=== PATIENT | male | born 1965 | race Caucasian/White ===

== ENCOUNTER 2016-11-22 12:27 | Observation (INO) | payer OTHER ==
[2016-11-22] MEDS ORDERED: RX INFO: IV CONTRAST WAS GIVEN 1 EACH MISC MISCELLANE PRN (12:53)
[2016-11-22] MEDS ORDERED: SODIUM CHLORIDE 0.9% 1,000 ML IV ONE (12:53)
--- NOTE | 2016-11-22 13:04 | ED ---
Dizziness HPI - General Chief Complaint: Dizziness Stated Complaint: Dizzy, Numbness Time Seen by Provider: 11/22/16 12:45 Source: patient Mode of arrival: ambulatory Limitations: no limitations - History of Present Illness Initial Comments: This is a 51-year-old male presents emergency department for dizziness, numbness , speech difficulty. He states that the dizziness is been going on for the last month. Started after a cold and he's been seen ENT who thinks that he has labyrinthitis however over the last couple of days is been noticing intermittent right-sided numbness and speech problems that are associated with the dizziness. He states that it happens intermittently. It seems to last seconds then resolves. Seems to be made worse with turning his head certain positions. He states during these episodes he is right hand cramps up and he can't use it. He denies any associated headaches or vision changes. No chest pain or shortness of breath. No nausea or vomiting. He does not have any other medical problems and typically works out however is been unable to work out recently because of generalized fatigue. He states he just does not feel right and decided come emergency department for evaluation. - Related Data Home Medications Medication Instructions Recorded Confirmed Omeprazole 20 mg PO DAILY 11/22/16 11/22/16 Allergies Allergy/AdvReac Type Severity Reaction Status Date / Time No Known Allergies Allergy Verified 11/22/16 13:02 Review of Systems ROS Statement: Those systems with pertinent positive or pertinent negative responses have been documented in the HPI. ROS Other: All systems not noted in ROS Statement are negative. Past Medical History Past Medical History: No Reported History History of Any Multi-Drug Resistant Organisms: None Reported Past Surgical History: Orthopedic Surgery Past Psychological History: No Psychological Hx Reported Smoking Status: Never smoker Past Alcohol Use History: Occasional Past Drug Use History: None Reported General Exam - General Exam Comments Initial Comments: Constitutional: Awake alert Appears comfortable Head: Normocephalic atraumatic Eyes: no conjunctival injection No scleral icterus pupils are 5 mm and reactive bilaterally, extraocular muscles are intact without nystagmus Neck: No JVD Supple, no carotid bruits are auscultated Heart: Regular rate rhythm normal S1-S2 no murmurs Lungs: Clear to auscultation bilaterally No wheezing No rales Abdomen: Soft nondistended nontender Extremities: Non edematous DP pulses intact Radial pulses intact Neuro: A&Ox3 nerves II through XII are grossly intact, 5 out of 5 strength in upper and lower extremities bilaterally, no ataxia with finger-nose and heel to garcia testing, sensation is the same on bilateral upper and lower extremities and on his face at this time however the patient has not been having symptoms while in the emergency department. Psych: Appropriate mood and affect Limitations: no limitations Course Vital Signs 11/22/16 11/22/16 12:36 14:16 Temperature 97.9 F Pulse Rate 89 68 Respiratory 18 16 Rate Blood Pressure 139/77 124/66 O2 Sat by Pulse 98 97 Oximetry EKG Findings - EKG Comments: EKG Findings:: EKG showing a sinus rhythm with rate 71. No abnormal ST segment changes or T-wave inversions. QTC is 436. Other intervals are normal. No ectopy. Medical Decision Making - Medical Decision Making This is a 51-year-old male presented for dizziness, numbness, dysarthria. He had a CT and CTA performed which were unremarkable. No symptoms while emergency department however symptoms are concerning for possible TIA versus seizure. I like him to be evaluated by neurology. Dr. Brice accepts the admission. - Lab Data Result diagrams: 11/22/16 13:30 11/22/16 13:30 Lab Results 11/22/16 11/22/16 11/22/16 Range/Units 13:30 13:30 13:30 WBC 5.9 (3.8-10.6) k/uL RBC 5.33 (4.30-5.90) m/uL Hgb 15.7 (13.0-17.5) gm/dL Hct 47.5 (39.0-53.0) % MCV 89.2 (80.0-100.0) fL MCH 29.5 (25.0-35.0) pg MCHC 33.0 (31.0-37.0) g/dL RDW 13.5 (11.5-15.5) % Plt Count 242 (150-450) k/uL Neutrophils % 62 % Lymphocytes % 27 % Monocytes % 7 % Eosinophils % 1 % Basophils % 1 % Neutrophils # 3.6 (1.3-7.7) k/uL Lymphocytes # 1.6 (1.0-4.8) k/uL Monocytes # 0.4 (0-1.0) k/uL Eosinophils # 0.1 (0-0.7) k/uL Basophils # 0.0 (0-0.2) k/uL PT 11.1 (9.0-12.0) sec INR 1.1 (<1.1) APTT 23.5 (22.0-30.0) sec Sodium 143 (137-145) mmol/L Potassium 4.8 (3.5-5.1) mmol/L Chloride 105 (98-107) mmol/L Carbon Dioxide 27 (22-30) mmol/L Anion Gap 11 mmol/L BUN 20 (9-20) mg/dL Creatinine 0.87 (0.66-1.25) mg/dL Est GFR (MDRD) Af Amer >60 (>60 ml/min/1.73 sqM) Est GFR (MDRD) Non-Af >60 (>60 ml/min/1.73 sqM) Glucose 102 H (74-99) mg/dL Calcium 9.9 (8.4-10.2) mg/dL Total Bilirubin 0.8 (0.2-1.3) mg/dL AST 36 (17-59) U/L ALT 61 (21-72) U/L Alkaline Phosphatase 63 (38-126) U/L Total Protein 7.8 (6.3-8.2) g/dL Albumin 4.5 (3.5-5.0) g/dL Disposition Clinical Impression: Vertigo, Dysarthria, Numbness Disposition: ADMITTED IP TO THIS [facility] Condition: Stable
[2016-11-22 13:54] LABS: Basophils % (A) 1 %; CH 30.5; CHCM 34.3; Eosinophils # (A) 0.1 k/uL (0-0.7); Eosinophils % (A) 1 %; HCT 47.5 % (39.0-53.0); HDW 2.69; HGB 15.7 gm/dL (13.0-17.5); Luc # (Auto) 0.15; Luc % (Auto) 3; Lymphocytes # (A) 1.6 k/uL (1.0-4.8); Lymphocytes % (A) 27 %; MCH 29.5 pg (25.0-35.0); MCV 89.2 fL (80.0-100.0); Mean Platelet Volume 6.6; Monocytes # (A) 0.4 k/uL (0-1.0); Monocytes % (A) 7 %; Neutrophils # (A) 3.6 k/uL (1.3-7.7); Neutrophils % (A) 62 %; RBC 5.33 m/uL (4.30-5.90); RDW 13.5 % (11.5-15.5); WBC 5.9 k/uL (3.8-10.6); WBC (Perox) 5.28
[2016-11-22 14:06] LABS: ALT 61 U/L (21-72); AST 36 U/L (17-59); Alkaline Phosphatase 63 U/L (38-126); Anion Gap 11 mmol/L; Blood Urea Nitrogen 20 mg/dL (9-20); Calcium 9.9 mg/dL (8.4-10.2); Carbon Dioxide 27 mmol/L (22-30); Chloride 105 mmol/L (98-107); Glucose 102 mg/dL (74-99); Non-African American GFR(MDRD) >60 (>60 ml/min/1.73 sqM); Potassium 4.8 mmol/L (3.5-5.1); Sodium 143 mmol/L (137-145); Total Bilirubin 0.8 mg/dL (0.2-1.3); Total Protein 7.8 g/dL (6.3-8.2)
[2016-11-22 14:28] LABS: INR 1.1 (<1.1); Partial Thromboplastin Time 23.5 sec (22.0-30.0); Prothrombin Time 11.1 sec (9.0-12.0)
--- NOTE | 2016-11-22 14:31 | CT ---
EXAMINATION TYPE: CT brain wo con DATE OF EXAM: 11/22/2016 2:26 PM COMPARISON: NONE HISTORY: dizziness, Rt sided numbness CT DLP: 1090.[address] of the brain was performed. The ventricles, basal cisterns and sulci overlying the cerebral convexities demonstrate mild enlargem ent. There is no evidence for intracranial hemorrhage or sulcal effacement. There is decreased attenuation about the periventricular white matter and deep white matter of both c erebral hemispheres, compatible with chronic small vessel ischemia. Differential diagnosis does inclu de demyelination. No mass effects are seen.No midline shift. Osseous calvarium is intact. If symptoms persist consider MRI. IMPRESSION: 1. Age related atrophic and chronic small vessel ischemic change without acute intracranial process s een at this time.
--- NOTE | 2016-11-22 14:38 | CT ---
EXAMINATION TYPE: CT angio head neck DATE OF EXAM: 11/22/2016 2:31 PM COMPARISON: NONE HISTORY: Rt sided numbness, dizziness CT DLP: 323.7 mGycm CONTRAST: Performed with IV Contrast, patient injected with 65 mL of Omnipaque 350. Combination Contrast CTA cervical carotids and [place] CTA cervical carotids with 3-D recons truction Contrast CTA of the cervical carotids was performed 3-D reconstruction imaging obtained at a separate workstation. Right carotid system: No significant plaque is seen of the right common carotid artery. There is No significant plaque also noted at the carotid bulb and proximal ICA. No significant diameter reductio n. ECA is patent. Right vertebral artery appears unremarkable. Left carotid system: No significant plaque is seen of the left common carotid artery. There is No si gnificant plaque also noted at the carotid bulb and proximal ICS. No significant diameter reduction. ECA is patent. Left vertebral artery appears unremarkable. IMPRESSION: 1. No significant diameter reduction to account for the patient's symptoms. CTA [place] with 3-D reconstruction Contrast CTA of the [place] was performed 3-D reconstruction imaging obtained at a separate workstation. Vertebrobasilar system as well as intracranial portions of the internal carotid arteries and their ma johanny tributaries are patent. I do not see evidence for sizable aneurysm or vascular malformation. Pl ease note MRI provides greater sensitivity and specificity. Visualized brain appears grossly unremar kable. IMPRESSION: 1. No siginificant abnormality.
[2016-11-22] MEDS ORDERED: NALOXONE 0.4 MG/ML 1 ML VIAL IV PRN (15:20)
[2016-11-22] MEDS: ASPIRIN 81 MG CHEW PO STA ×2 (15:42→15:46)
[2016-11-22] MEDS ORDERED: hydrALAZINE HCL 20 MG/ML 1 ML VIAL IVP PRN (19:01)
[2016-11-22] MEDS ORDERED: ALPRAZolam 0.25 MG TAB PO PRN (19:01)
[2016-11-22] MEDS ORDERED: HYDROcodone/APAP 5-325MG 1 EACH TAB PO PRN (19:01)
[2016-11-22] MEDS ORDERED: TEMAZEPAM 15 MG CAP PO PRN (19:01)
--- NOTE | 2016-11-22 19:20 | XR ---
EXAMINATION TYPE: XR chest 1V portable DATE OF EXAM: 11/22/2016 7:16 PM COMPARISON: NONE HISTORY: Right-sided numbness and dizziness TECHNIQUE: Single frontal view of the chest is obtained. FINDINGS: Heart and mediastinum are normal. Lungs are clear. Diaphragm is normal. There are chest le ads. Bony thorax is intact. IMPRESSION: Normal chest
[2016-11-22] MEDS: HEPARIN SODIUM,PORCINE 5,000 UNIT/ML 1 ML VIAL SQ SCH (20:12)
[2016-11-22 20:30] LABS: Appearance,Urine Clear (Clear); Bilirubin,Urine Negative (Negative); Glucose,Urine (UA) Negative (Negative); Ketones,Urine Negative (Negative); Leukocyte Esterase,Urine Negative (Negative); Nitrite,Urine Negative (Negative); PH, Urine 6.5 (5.0-8.0); Protein,Urine Negative (Negative); Specific Gravity,Urine 1.021 (1.001-1.035); UA Billing (MACRO vs. MICRO) CHEM; Urobilinogen,Urine <2.0 mg/dL (<2.0)
--- NOTE | 2016-11-22 20:38 | US ---
EXAMINATION TYPE: US carotid duplex BILAT DATE OF EXAM: 11/22/2016 8:22 PM COMPARISON: NONE CLINICAL HISTORY: stroke. EXAM MEASUREMENTS: RIGHT: Peak Systolic Velocity (PSV) cm/sec ----- Right CCA: 80.7 ----- Right ICA: 75.5 ----- Right ECA: 69.0 ICA/CCA ratio: 0.9 RIGHT: End Diastole cm/sec ----- Right CCA: 22.0 ----- Right ICA: 26.0 ----- Right ECA: 12.9 LEFT: Peak Systolic Velocity (PSV) cm/sec ----- Left CCA: 73.6 ----- Left ICA: 71.1 ----- Left ECA: 77.5 ICA/CCA ratio: 1.0 LEFT: End Diastole cm/sec ----- Left CCA: 19.3 ----- Left ICA: 27.0 ----- Left ECA: 11.5 VERTEBRALS (direction of flow): Right Vertebral: Antegrade Left Vertebral: Antegrade Minimal plaque visualized bilaterally, no elevated velocities IMPRESSION: There is antegrade flow in the vertebral arteries. The images and measurements suggest l ess than 20% stenosis in both internal carotid arteries. Criteria for Assigning % of Stenosis / Diameter reduction (Estimation based on the indirect measurements of the internal carotid artery velocities (ICA PSV). 1. Normal (no stenosis)=ICA PSV < 125 cm/s: ratio < 2.0: ICA EDV<40 cm/s. 2. Less than 50% stenosis=ICA PSV < 125 cm/s: ratio < 2.0: ICA EDV<40 cm/s. 3. 50 to 69% stenosis=ICA PSV of 125 to 230 cm/s: ration 2.0 ? 4.0: ICA EDV 40-100 cm/s. 4. Greater than 70% stenosis to near occlusion= ICA PSV > 230 cm/s: ratio > 4.0: ICA EDV > 100 cm/s. 5. Near occlusion= ICA PSV velocities may be low or undetectable: variable ratio and ICA EDV. 6. Total occlusion=unable to detect flow.
--- NOTE | 2016-11-23 06:34 | HP ---
DATE OF ADMISSION: The chief complaints are dizziness as well as numbness on the right side of the body. HISTORY OF PRESENT ILLNESS: This 51-year-old gentleman with a past medical history of multiple medical problems including GERD, history of DJD being followed by no primary physician in the outpatient setting was previously working in the [facility]. 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 The patient had a cold about one month ago. Subsequently, the patient had dizziness and the patient is being evaluated by ENT. But today the patient also had some numbness and almost like passing out and a speech difficulty started for a few minutes and the patient came to [facility] and admitted for further evaluation and treatment. The patient was diagnosed with labyrinthitis by ENT, Dr. Mueller in the outpatient setting apparently according to the patient. Otherwise because of right-sided numbness and symptoms, patient was concerned about a TIA or a stroke and the patient came to [facility] and was admitted for further evaluation and treatment. There is no history of any fever, rigors or chills. No history of headache, loss of consciousness or seizures. Currently, the basic labs, CBC and BMP within normal limits and the patient had CT angiography, which showed no significant diameter reduction and the patient admitted for further evaluation and treatment. There is no history of fever, rigors or chills. No history of headache, loss of consciousness or seizures PAST MEDICAL HISTORY: History of DJD, history of GERD. Medications prior to admission include omeprazole. ALLERGIES: None. FAMILY HISTORY: History myocardial infarction, possibly stroke. SOCIAL HISTORY: Patient used to smoke. Occasional alcohol intake. REVIEW OF SYSTEMS: ENT: No diminishing hearing or diminished vision. CARDIOVASCULAR: No angina or palpitations. RESPIRATORY: No cough, no hemoptysis. GI: No nausea. : No dysuria. NERVOUS SYSTEM: As mentioned earlier ALLERGY/IMMUNOLOGY: No asthma. MUSCULOSKELETAL: As mentioned earlier. HEMATOLOGY/ONCOLOGY: No history of anemia. ENDOCRINE: No history of diabetes mellitus or hypothyroidism. CONSTITUTIONAL: As mentioned earlier. DERMATOLOGY: Negative. RHEUMATOLOGY: Negative. PSYCHIATRY: as mentioned earlier. PHYSICAL EXAMINATION: The patient is alert and oriented x3 The pulse is 66, blood pressure 120/57, respirations 16, temps 97.5, pulse ox 98% on room. HEENT: Conjunctivae normal. NECK: No jugular venous distention. CARDIOVASCULAR: S1 and S2, muffled. RESPIRATORY: Breath sounds diminished at the bases. A few scattered rhonchi, no crackles. ABDOMEN: Soft, nontender. No mass palpable. LEGS: No edema, no swelling. NERVOUS SYSTEM: Higher function as mentioned. Moves all 4 limbs. No sensory abnormalities. No weakness appreciated. LYMPHATICS: No lymphadenopathy of neck, axillae or groin. SKIN: No ulcers, rashes or bleeding. LABS: CBC within normal limits. INR is 1.1. Glucose 102. ASSESSMENT: 1. Right-sided numbness and tingling, possible acute transient ischemic attack involving the left hemisphere. 2. Increased random blood sugar. 3. History of recent dizziness and possibly benign vertigo, labyrinthitis. 4. History of gastroesophageal reflux disease. 5. History of degenerative joint disease. 6. History of nicotine dependence. RECOMMENDATIONS AND DISCUSSION: This 51-year-old gentleman presented with multiple complex medical issues, we will monitor the patient closely. Continue the current medications. Continue symptomatic treatment. Otherwise, recommend antiplatelet agents. Neurology consultation ( ) full neurovascular workup. Otherwise, guarded prognosis because of multiple complex medical issues. Further recommendations to follow. See orders for further details. Discussed with the patient, understands and agrees. I also recommend that patient follows up with primary physician closely. The patient understands and agrees. NAVDEEP
[2016-11-23 06:42] LABS: Basophils % (A) 1 %; CH 30.9; CHCM 34.8; Eosinophils # (A) 0.1 k/uL (0-0.7); Eosinophils % (A) 3 %; HCT 43.2 % (39.0-53.0); HDW 2.77; HGB 14.8 gm/dL (13.0-17.5); Luc # (Auto) 0.15; Luc % (Auto) 3; Lymphocytes # (A) 1.7 k/uL (1.0-4.8); Lymphocytes % (A) 35 %; MCH 30.6 pg (25.0-35.0); MCHC 34.2 g/dL (31.0-37.0); MCV 89.3 fL (80.0-100.0); Mean Platelet Volume 6.6; Monocytes # (A) 0.4 k/uL (0-1.0); Monocytes % (A) 8 %; Neutrophils # (A) 2.4 k/uL (1.3-7.7); Neutrophils % (A) 50 %; RBC 4.84 m/uL (4.30-5.90); RDW 13.4 % (11.5-15.5); WBC 4.7 k/uL (3.8-10.6); WBC (Perox) 4.69
[2016-11-23] MEDS: PANTOPRAZOLE 40 MG TABLET PO SCH (06:47)
[2016-11-23 06:48] LABS: Anion Gap 11 mmol/L; Blood Urea Nitrogen 17 mg/dL (9-20); Calcium 9.7 mg/dL (8.4-10.2); Carbon Dioxide 24 mmol/L (22-30); Chloride 107 mmol/L (98-107); Cholesterol 216 mg/dL (<200); Glucose 108 mg/dL (74-99); HDL Cholesterol 41 mg/dL (40-60); Non-African American GFR(MDRD) >60 (>60 ml/min/1.73 sqM); Potassium 4.4 mmol/L (3.5-5.1); Sodium 142 mmol/L (137-145); Triglycerides 198 mg/dL (<150)
[2016-11-23] MEDS: HEPARIN SODIUM,PORCINE 5,000 UNIT/ML 1 ML VIAL SQ SCH ×2 (09:27→22:02)
[2016-11-23] MEDS: ASPIRIN 325 MG TAB PO SCH (09:27)
--- NOTE | 2016-11-23 11:59 | ECHOF ---
Referral Reason:Stroke MEASUREMENTS -------- HEIGHT: 170.2 cm WEIGHT: 88.5 kg BP: 112/69 RVIDd: 3.6 cm (< 3.3) IVSd: 1.1 cm (0.6 - 1.1) LVIDd: 4.4 cm (3.9 - 5.3) LVPWd: 1.1 cm (0.6 - 1.1) IVSs: 2.0 cm LVIDs: 2.8 cm LVPWs: 1.9 cm LA Diam: 2.2 cm (2.7 - 3.8) LAESV Index (A-L): 19.11 ml/m Ao Diam: 3.5 cm (2.0 - 3.7) AV Cusp: 2.1 cm (1.5 - 2.6) LA Diam: 2.9 cm (2.7 - 3.8) MV EXCURSION: 22.560 mm (> 18.000) MV EF SLOPE: 78 mm/s (70 - 150) EPSS: 0.4 cm MV E Miguel Angel: 0.86 m/s MV DecT: 272 ms MV A Miguel Angel: 0.69 m/s MV E/A Ratio: 1.25 RAP: 5.00 mmHg RVSP: 18.11 mmHg FINDINGS -------- Sinus rhythm. This was a technically adequate study. There is borderline concentric left ventricular hypertrophy. Overall left ventricular systolic function is normal with, an EF between 60 - 65 %. The right ventricle is normal in size and function. Normal LA size by volume 22+/-6 ml/m2. The right atrium is normal in size. The aortic valve is trileaflet, and appears structurally normal. No aortic stenosis or regurgitation. The mitral valve leaflets are mildly thickened. There is trace mitral regurgitation. Trace tricuspid regurgitation present. There is no evidence of pulmonary hypertension. The right ventricular systolic pressure, as measured by Doppler, is 18.11mmHg. The pulmonic valve was not well visualized. The aortic root size is normal. IVC Not well visulized. There is no pericardial effusion. CONCLUSIONS -------- 1. Sinus rhythm. 2. The pulmonic valve was not well visualized. 3. The aortic root size is normal. 4. IVC Not well visulized. 5. There is no pericardial effusion. 6. There is borderline concentric left ventricular hypertrophy. 7. Overall left ventricular systolic function is normal with, an EF between 60 - 65 %. 8. Normal LA size by volume 22+/-6 ml/m2. 9. The mitral valve leaflets are mildly thickened. 10. There is trace mitral regurgitation. 11. Trace tricuspid regurgitation present. 12. There is no evidence of pulmonary hypertension. 13. The right ventricular systolic pressure, as measured by Doppler, is 18.11mmHg. [employer]CRAFT [employer]ORER: Rene Jacques RDCS
[2016-11-23] MEDS: ATORVASTATIN 20 MG TAB PO SCH (12:07)
--- NOTE | 2016-11-23 17:58 | PN ---
DATE OF SERVICE: 11/23/2016 This 51-year-old gentleman admitted with dizziness and numbness of the right side is being closely monitored. The CT scan has been negative. No chest pain. No palpitations. No fever. Patient has some mild hyperlipidemia. Neurology evaluation in progress. MRI has been ordered. On exam, alert and oriented x3. Pulse is 72, blood pressure 106/56, respirations 18, temperature 97.8, pulse ox 95% on room air. HEENT: Conjunctivae normal. NECK: No jugular venous distention. CARDIOVASCULAR: S1 and S2. RESPIRATORY: Breath sounds diminished at the bases. No rhonchi, no crackles. ABDOMEN: Soft, nontender. LEGS: No edema, no swelling. NERVOUS SYSTEM: No focal deficits. LABS: CBC within normal limits. Otherwise triglycerides is 198, cholesterol is 169, LDL is 135. ASSESSMENT: 1. Right-sided numbness and tingling with possible acute transient ischemic attack involving the left hemisphere. 2. Increased random blood sugar. 3. Hyperlipidemia. 4. Hypertriglyceridemia. 5. History of recent dizziness and possible benign positional vertigo and labyrinthitis. 6. History of gastroesophageal reflux disease. 7. History of degenerative joint disease. 8. History of nicotine dependence. RECOMMENDATIONS AND DISCUSSION: I recommend to continue the current medications, continue monitoring and symptomatic treatment. Otherwise add Lipitor. Continue with antiplatelet agents. Continue the rest of medications, DVT prophylaxis. Neurology evaluation. Neurovascular work-up and a 2-D echo was done today, which showed ejection fraction of 60 to 65%. Prognosis guarded. Further recommendations to follow.
--- NOTE | 2016-11-24 04:42 | CONS ---
DATE OF CONSULTATION: 11/23/2016 CHIEF COMPLAINT: Dizziness and numbness. HISTORY OF PRESENT ILLNESS: Mr. Rothman is a pleasant 51-year-old male who is being evaluated by the neurology service per the request of Dr. Brice for the above-mentioned complaints. The patient states that he has been having sinus issues for a few weeks. He was seen by a local physician and was given some antibiotics. His symptoms did not improve and he started having some dizziness which he described as an off-balance sensation with occasional vertigo. He did see an ear, nose, and throat specialist, who gave him some nasal sprays and steroids. A couple of days ago, he started having more dizziness with some numbness and tingling involving the right side of his body. He noticed that this is positional and with certain head movements he was having numbness involving his right face, right arm, and even the right leg. He denies any neck pain and denies any recent injuries. He was brought into [facility] Emergency Room for further workup and management. In the emergency room, a CT scan of the brain was done, which showed small vessel ischemic changes and generalized atrophy. A carotid Doppler was done, which showed no hemodynamically significant stenosis. His fasting lipid panel showed mild dyslipidemia. The patient was started on Lipitor and aspirin and admitted for further workup and management. He did have a CT angiogram of the neck, which showed no abnormalities. His CT angiogram of the brain was also normal. I did review his chest x-ray, CBC, comprehensive metabolic profile, and INR, all of which were normal. At the time of my evaluation, the patient is lying in his bed and appears to be in no acute distress. He continues to have the above-mentioned symptoms whenever he gets out of bed. He is asymptomatic when he is lying in bed. He denies any previous symptoms similar to this. PAST MEDICAL HISTORY: Gastroesophageal reflux disease. PAST SURGICAL HISTORY: Orthopedic surgeries. SOCIAL HISTORY: He denies any tobacco or drug use. He occasionally drinks alcohol. FAMILY HISTORY: Noncontributory. HOME MEDICATIONS: Omeprazole. ALLERGIES: No known drug allergies. REVIEW OF SYSTEMS: CONSTITUTIONAL: Negative. EYES: Negative. ENT: As mentioned above. CARDIOVASCULAR: Negative. RESPIRATORY: Negative. NEUROLOGICAL: As mentioned above. GASTROINTESTINAL: Positive for occasional heartburn. GENITOURINARY: Negative. PSYCHIATRIC: Negative. ENDOCRINE: Negative. DERMATOLOGICAL: Negative. MUSCULOSKELETAL: As mentioned above. PHYSICAL EXAM: Vital signs show a temperature of 97.6, pulse 72, respirations 16, blood pressure 122/73. GENERAL APPEARANCE: The patient is a well-developed male who appears to be in no acute distress. HEENT: Normocephalic, atraumatic, no facial asymmetry is seen. Extraocular muscles are intact with no nystagmus seen. Neck is supple with no masses felt. CARDIOVASCULAR: Regular rate and rhythm. ABDOMEN: Nontender, nondistended. Extremities showed no edema or clubbing. NEUROLOGICAL EXAM: The patient is awake, alert, and oriented x3. Speech and language are normal. Strength is full in all 4 extremities. Sensory exam was normal to light touch in all 4 extremities. No tremors or seizure-like activity is seen. No facial asymmetry is noticed on cranial nerve testing. IMPRESSION: 1. Vertigo. 2. Right-sided numbness. 3. Small vessel ischemic disease. 4. Dyslipidemia. RECOMMENDATIONS: The patient continues to have recurrent dizziness and right-sided numbness which is positional. I did review his CT angiogram of the neck, which showed no evidence of any arterial dissection. Due to his continued symptoms, I will order an MRI of the brain and cervical spine without contrast. An EEG will be ordered. Depending on the results, I will consider trying him on meclizine. Continue Lipitor for the dyslipidemia. Continue aspirin for the small vessel ischemic changes seen on his CT scan of the brain. I will continue to follow with you. Further recommendations to follow. Thank you for allowing me to participate in the care of your patient. If you have any questions, please feel free to contact me.
[2016-11-24 06:29] VITALS: RESP 18
[2016-11-24 06:29] LABS: Basophils % (A) 1 %; CH 30.3; CHCM 33.9; Eosinophils # (A) 0.1 k/uL (0-0.7); Eosinophils % (A) 2 %; HCT 45.2 % (39.0-53.0); HDW 2.66; HGB 14.8 gm/dL (13.0-17.5); Luc # (Auto) 0.16; Luc % (Auto) 3; Lymphocytes # (A) 1.9 k/uL (1.0-4.8); Lymphocytes % (A) 33 %; MCH 29.4 pg (25.0-35.0); MCHC 32.8 g/dL (31.0-37.0); MCV 89.8 fL (80.0-100.0); Mean Platelet Volume 6.5; Monocytes # (A) 0.4 k/uL (0-1.0); Monocytes % (A) 8 %; Neutrophils % (A) 54 %; RBC 5.04 m/uL (4.30-5.90); RDW 13.5 % (11.5-15.5); WBC 5.6 k/uL (3.8-10.6); WBC (Perox) 5.65
[2016-11-24 06:38] LABS: Anion Gap 10 mmol/L; Blood Urea Nitrogen 20 mg/dL (9-20); Calcium 9.7 mg/dL (8.4-10.2); Carbon Dioxide 24 mmol/L (22-30); Chloride 107 mmol/L (98-107); Glucose 119 mg/dL (74-99); Non-African American GFR(MDRD) >60 (>60 ml/min/1.73 sqM); Potassium 4.4 mmol/L (3.5-5.1); Sodium 141 mmol/L (137-145)
[2016-11-24] MEDS: PANTOPRAZOLE 40 MG TABLET PO SCH (06:43)
[2016-11-24] MEDS: HEPARIN SODIUM,PORCINE 5,000 UNIT/ML 1 ML VIAL SQ SCH (08:27)
[2016-11-24] MEDS: ASPIRIN 325 MG TAB PO SCH (08:27)
[2016-11-24] MEDS: ATORVASTATIN 20 MG TAB PO SCH (08:27)
--- NOTE | 2016-11-24 11:33 | MR ---
EXAMINATION TYPE: MR angio head wo con DATE OF EXAM: 11/24/2016 11:26 AM COMPARISON: CT angiogram of the brain dated 22 Nov 2016 HISTORY: possible tia, dizziness, Rt sided numbness, difficulty with speech TECHNIQUE: Time of flight images focusing on the [place] were performed without contrast. FINDINGS: The exam is stable. The left vertebral artery is dominant, right vertebral artery is not se en. Internal carotid arteries are patent. There is no evident aneurysm or dissection. No vascular mal formation. IMPRESSION: Stable exam, no significant abnormalities evident.
--- NOTE | 2016-11-24 11:43 | MR ---
MR brain with and without contrast and MR cervical spine without contrast HISTORY: TIA, right-sided numbness, difficulty with speech and dizziness Multiplanar multisequence and postcontrast images through the brain following 18 cc MultiHance IV Multiplanar multisequence imaging through the cervical spine Correlation to CT brain 22 Nov 2016 MR brain: There is no restricted diffusion. Periventricular white matter increased signal is noted on inversion recovery and T2-weighted sequences which is somewhat confluent, spherical area is present at the level of the posterior aspect of the posterior horn of the right lateral ventricle. Some scatt ered hyperintensities are present within the deep white matter on inversion recovery and T2-weighted sequences, approximately 5-10 lesions. The corpus callosum, pituitary, cervical medullary junction, c erebellopontine angles are unremarkable. There is no hemorrhage or hydrocephalus. Mild mucosal diseas e present in the maxillary sinus, ethmoid air cells. The orbits show a symmetric appearance. No abnor mal enhancement following contrast administration. Some minimal inflammatory change noted in the mast oid air cells. IMPRESSION: There is no evidence of acute infarct. Findings could be indicative of chronic small vess el ischemia, hypertension, migraine headaches, Lyme disease, correlate to exclude multiple sclerosis. Cervical spine MRI: Cervical vertebral bodies show preserved height and alignment. There is spondylos is with associated loss of disc height and signal at C4-5, C5-6 and C6-7. Interval bodies show some m inimal endplate discogenic marrow signal change compatible with degenerative disc disease. Cervical c ord signal, cervical medullary junction are maintained. C2-3: Some minimal left-sided foraminal encroachment. No disc herniation or central stenosis C3-4: Within normal limits C4-5: Bilateral foraminal encroachment is present, posterior extension of endplate disc complex conta cts the anterior thecal sac with some mass effect and possibly there is contact the anterior cervical cord, there is mild to moderate central canal stenosis C5-6: Posterior extension of endplate disc complex may contact the anterior cervical cord. Bilateral foraminal encroachment is noted. Mild to moderate central stenosis. C6-7: Left posterior paracentral disc herniation is present, there is contact with the cervical cord, some moderate central canal stenosis is present, there is right-sided foraminal encroachment greater than left. C7-T1: Unremarkable IMPRESSION: Multilevel degenerative disc disease, foraminal encroachment, Canal stenosis as described .
[2016-11-24 15:59] VITALS: BP 129/74; PULSE 82; TEMP 97.7
[2016-11-24] MEDS ORDERED: MECLIZINE 12.5 MG TAB PO PRN (16:05)
--- NOTE | 2016-11-24 16:05 | P.PN ---
Subjective Principal diagnosis: Dizziness and numbness This pleasant 51-year-old male continuing to be evaluated by the neurology service for the above complaints. He says for the past couple weeks she is having some upper respiratory issues. His symptoms did not improve much on antibiotics. He started to have some dizziness and occasional vertigo. He was seen by ENT who gave him some nasals steroids. Within the last couple days he started to have more dizziness and some numbness and tingling on the right side of his body. The symptoms continue to be very much positional. Recall that on initial CT of the brain was done and showed some small vessel ischemic changes and generalized atrophy. His carotid Doppler showed no hemodynamically significant stenosis. His MRI did confirm chronic small vessel ischemic changes and there were no acute abnormalities. His MRI of the cervical spine did show C4 5 and C5 6 cord contact, but there was no abnormal signal to the spinal cord. There were nosuspicious lesions of the cervical spinal cord. CTA of the neck showed no abnormalities and CTA of the brain was also normal. Earlier today he was given some IV Solu-Medrol to see if his symptoms would improve. He denies any significant improvement in his symptoms. At the time my exam is resting comfortably in bed in no acute distress. Objective - Vital Signs Vital signs: Vital Signs Temp 96.8 F L 11/24/16 11:57 Pulse 67 11/24/16 11:57 Resp 18 11/24/16 11:57 BP 129/69 11/24/16 11:57 Pulse Ox 95 11/24/16 08:31 Intake & Output 11/23/16 11/24/16 11/24/16 18:59 06:59 18:59 Intake Total 916 10 600 Balance 916 10 600 Weight 88.3 kg Intake: IV 10 0 Sodium Chloride 0.9% 10 0 Intake, IV Titration 100 Amount methylPREDNISolone SOD 100 SUCC 500 mg In Sodium Chloride 0.9% 100 ml @ 100 mls/hr IVPB ONCE STA Rx#:[id number] Oral 916 500 Other: # Voids 2 - Constitutional General appearance: Present: average body habitus, cooperative, no acute distress - EENT Eyes: Present: EOMI, PERRLA. Absent: abnormal pupil, ptosis ENT: Present: hearing grossly normal - Neck Neck: Present: normal ROM. Absent: rigidity - Respiratory Respiratory: negative: prolonged expiration, prolonged inspiration - Cardiovascular Rhythm: regular - Gastrointestinal General gastrointestinal: Absent: distended, tenderness - Neurologic Neurologic Comment(s): He is alert awake and oriented 3. Speech-language are normal. There is no lateralizing weakness. There is no facial asymmetry. Strength is full in bilateral upper and lower extremities. There is no sensory deficit of the face or any extremity. There is no nystagmus. There is no pronator drift. There is no dysmetria. No tremors or seizure-like activities are seen. - Labs CBC & Chem 7: 11/24/16 05:56 11/24/16 05:56 Labs: Abnormal Lab Results - Last 24 Hours (Table) 11/24/16 Range/Units 05:56 Glucose 119 H (74-99) mg/dL Assessment and Plan (1) Hyperlipidemia Status: Chronic (2) Numbness Status: Acute (3) Vertigo Status: Acute Plan: Although his symptoms have lessened he continues to have recurrent dizziness/ vertigo and right-sided numbness lasting for seconds. He says his symptoms only happen with quick turns of the head, or with standing quickly. He had minimal response to IV Solu-Medrol. His EEG results are still pending. He may continue meclizine 25 mg as needed for his symptoms. Given his presenting symptoms and MRI findings we would like to see him in an outpatient setting to rule out any demyelinating process. Recommend continued Lipitor and aspirin. I have performed a history and physical on the above patient. I have reviewed the above note, and agree.
--- NOTE | 2016-11-25 09:37 | DS ---
DATE OF ADMISSION: 11/22/2016 DATE OF DISCHARGE: 11/24/2016 FINAL DIAGNOSES: 1. Right-sided numbness and tingling with possible acute transient ischemic attack involving the left hemisphere. 2. Increased random blood sugar. 3. Hyperlipidemia. 4. Hypertriglyceridemia. 5. History of recent dizziness and possibly BPV and as well as labyrinthitis. 6. History of gastroesophageal reflux disease. 7. History of degenerative joint disease. 8. History of nicotine dependence. 9. Multilevel cervical degenerative joint disease without any canal stenosis. 10. FULL CODE. DISCHARGE DISPOSITION: The patient will be discharged in a stable condition with guarded prognosis. HISTORY OF PRESENT ILLNESS: This is a 51-year-old gentleman with a past medical history of multiple medical problems, was admitted with numbness of the right side of the body. The patient was treated symptomatically and the patient also had hyperlipidemia. The patient had a full neurovascular work-up along with Neurology, Dr. Live. The patient improved significantly. Patient will be discharged. Patient also had MRI and MRA. On exam, vitals are stable. CARDIOVASCULAR SYSTEM: S1, S2, muffled. NERVOUS SYSTEM: No focal motor deficits. DISCHARGE ADVICE: 1. Diet is cardiac. 2. Activity limited until followup. 3. Follow up with Dr. Pickett in 2 to 3 days. 4. Follow up with Dr. Live in 1 week. Medications are: 1. Ecotrin 81 mg p.o. daily. 2. Lipitor 20 mg daily. 3. Antivert 12.5 mg t.i.d. p.r.n. 4. Omeprazole 20 mg p.o. daily. Once again, patient will be discharged in a stable condition with a guarded prognosis.
--- NOTE | 2016-11-26 08:50 | EEG ---
DATE OF SERVICE: 11/24/2016 INDICATIONS FOR EXAMINATION: Dizziness. AGE: 51Y DESCRIPTION OF THE PROCEDURE: This EEG was performed using a 21-channel digital electroencephalograph, following the international 10 to 20 system. DESCRIPTION OF THE RECORDING: From the beginning of the tracing, and with the patient's eyes closed, the background rhythm was mostly consisting of 9 Hz alpha frequency in the posterior occipital leads. No obvious asymmetry is seen. Photic stimulation was performed with a minimal driving response seen. No pathological waves were elicited. Hyperventilation was not performed. The patient remains awake throughout the tracing. No epileptiform discharges were seen. His EKG lead showed a regular rate and rhythm. INTERPRETATION: This awake EEG can be considered within normal limits. There was no asymmetry seen. No epileptiform discharges were noticed. The absence of epileptiform discharges does not rule out the diagnosis of epilepsy, therefore, clinical correlation is recommended.
== END 2016-11-24 16:50 | disposition home or self-care (01) ==
LOC: EC 12:27 → 6SEL 15:20
PROVIDERS: ADMIT Hospitalist; ATTEND Hospitalist
DX: R42 Dizziness and giddiness (principal); R20.0 Anesthesia of skin; R25.2 Cramp and spasm; Z79.899 Other long term (current) drug therapy; I73.9 Peripheral vascular disease, unspecified; K21.9 Gastro-esophageal reflux disease without esophagitis; Z82.49 Family history of ischemic heart disease and other diseases of the circulatory system; Z87.891 Personal history of nicotine dependence; R73.9 Hyperglycemia, unspecified; E78.5 Hyperlipidemia, unspecified; E78.1 Pure hyperglyceridemia; M47.812 Spondylosis without myelopathy or radiculopathy, cervical region
CPT/HCPCS: 99285 ×2; 96360 ×2; 96365; 96372 ×2; 36415; 95816; 93005; 93306; 80061; 80053; 80048 ×2; 85025 ×3; 85610; 85730; 81003; 80306; 71010; 93880; 70496; 70450; 70498; 70544; 70553; 72141; G0378 ×3; J1644 ×3; Q9967; J2930; A9577

== ENCOUNTER → 2017-01-04 | Outpatient (CLI) | payer OTHER | END | disposition home or self-care (01) | LOC: LABWHC1 16:15 | PROVIDERS: ATTEND Psychiatry & Neurology Neurology | DX: R90.82 White matter disease, unspecified (principal); R42 Dizziness and giddiness; R53.1 Weakness | CPT/HCPCS: 36415; 82040; 82042; 82784; 83873; 83916 ==

== ENCOUNTER → 2019-08-30 | Outpatient (CLI) | payer OTHER ==
[2019-08-30 15:03] LABS: Basophils # (A) 0.1 k/uL (0-0.2); Basophils % (A) 1 %; Eosinophils # (A) 0.1 k/uL (0-0.7); Eosinophils % (A) 1 %; HCT 49.9 % (39.0-53.0); HGB 16.2 gm/dL (13.0-17.5); Lymphocytes # (A) 1.4 k/uL (1.0-4.8); Lymphocytes % (A) 22 %; MCH 29.8 pg (25.0-35.0); MCHC 32.5 g/dL (31.0-37.0); MCV 91.9 fL (80.0-100.0); Mean Platelet Volume 7.1; Monocytes # (A) 0.4 k/uL (0-1.0); Monocytes % (A) 7 %; Neutrophils # (A) 4.1 k/uL (1.3-7.7); Neutrophils % (A) 67 %; Platelet Count 242 k/uL (150-450); RBC 5.43 m/uL (4.30-5.90); RDW 15.2 % (11.5-15.5); WBC 6.2 k/uL (3.8-10.6)
[2019-08-30 15:52] LABS: Erythrocyte Sedimentation Rate 5 mm/hr (0-15)
[2019-08-30 18:31] LABS: African American GFR (CKD) 99.1 (60.0-200.0); Albumin 4.5 g/dL (3.80-4.90); Albumin/Globulin Ratio 2.14 (1.60-3.17); Anion Gap 8.4 mmol/L (4.00-12.00); C Reactive Protein 1.1 mg/dL (0.0-0.8); Calcium 9.2 mg/dL (8.7-10.3); Carbon Dioxide 23.6 mmol/L (21.6-31.8); Globulin 2.1 g/dL (1.6-3.3); Non-African American GFR(CKD) 85.5 (60.0-200.0); Potassium 3.9 mmol/L (3.5-5.5); Total Bilirubin 0.5 mg/dL (0.3-1.2); Total Protein 6.6 g/dL (6.2-8.2)
[2019-08-30 18:38] LABS: T4, Free (Free Thyroxine) 1.2 ng/dL (0.80-1.80)
[2019-08-30 19:19] LABS: Gliadin AB IgA, Deaminated NEGATIVE (NEGATIVE); Gliadin AB IgA, Unit <0.2 U/mL; Gliadin AB IgG, Deaminated NEGATIVE (NEGATIVE)
== END | disposition home or self-care (01) ==
LOC: LABWHC1 14:25
PROVIDERS: ATTEND Internal Medicine
DX: R19.4 Change in bowel habit (principal)
CPT/HCPCS: 36415; 80053; 83516; 83630; 83993; 84439; 84443; 85025; 85652; 86140; 87045; 87046; 87328; 87329

== ENCOUNTER → 2020-12-23 | Outpatient (CLI) | payer OTHER ==
--- NOTE | 2020-12-23 21:31 | XR ---
EXAMINATION TYPE: XR chest w obliques DATE OF EXAM: 12/23/2020 COMPARISON: 11/22/2016 HISTORY: Cough TECHNIQUE: AP and lateral views of the chest are obtained. Both oblique views were obtained. FINDINGS: Heart size is normal. The pulmonary vasculature is normal. The lungs are clear. No pneumoth orax is evident. No suspicious osseous abnormality is evident. Tracheobronchial tree as visualized ap pears normal. No joint effusions are evident. IMPRESSION: 1. Chest x-ray including oblique views appear unremarkable.
== END | disposition home or self-care (01) ==
LOC: RADXRMAIN 13:07
PROVIDERS: ATTEND Otolaryngology
DX: R05 Cough (principal)
CPT/HCPCS: 71047

== ENCOUNTER 2021-05-11 12:47 | Emergency (ER) | payer OTHER ==
[2021-05-11 13:04] VITALS: BP 159/91; PULSE 100; RESP 19; TEMP 97.9
[2021-05-11] MEDS ORDERED: OXYMETAZOLINE 0.05% NASL SPRAY 1 SPRAY BOTTLE NASAL STA (13:14)
[2021-05-11] MEDS ORDERED: BACITRACIN OINT 1 EACH PACKET TOPICAL STA (13:24)
--- NOTE | 2021-05-11 13:43 | ED ---
General Adult HPI - General Chief complaint: ENT Stated complaint: epistaxis Time Seen by Provider: 05/11/21 13:11 Source: patient Mode of arrival: ambulatory Limitations: no limitations - History of Present Illness Initial comments: 56 year-old female patient presents to the emergency department for evaluation of nose bleed. States he started spontaneously bleeding from the left nostril around 12:30pm. Denies any nasal injury or history of nose bleeds. Denies recent illness. Denies use of blood thinners. States he is otherwise healthy. He denies dizziness or weakness. Patient denies any recent rash, fever, chills, cough, shortness of breath, chest pain, abdominal pain, nausea, vomiting, diarrhea, constipation, back pain, hematuria, dysuria, urinary urgency, urinary frequency, headache, visual changes, or any other complaints. - Related Data Home Medications Medication Instructions Recorded Confirmed Omeprazole 20 mg PO BID 11/22/16 05/11/21 Allergies Allergy/AdvReac Type Severity Reaction Status Date / Time No Known Allergies Allergy Verified 05/11/21 14:11 Review of Systems ROS Statement: Those systems with pertinent positive or pertinent negative responses have been documented in the HPI. ROS Other: All systems not noted in ROS Statement are negative. Past Medical History Past Medical History: GERD/Reflux History of Any Multi-Drug Resistant Organisms: None Reported Past Surgical History: Orthopedic Surgery Additional Past Surgical History / Comment(s): RT SHOULDER ARTHROSCOPY Past Anesthesia/Blood Transfusion Reactions: No Reported Reaction Past Psychological History: No Psychological Hx Reported Smoking Status: Never smoker Past Alcohol Use History: Occasional Past Drug Use History: None Reported - Past Family History Mother Additional Family Medical History / Comment(s): POSSIBLE STROKE Father Family Medical History: Myocardial Infarction ([place]) Additional Family Medical History / Comment(s): CABG General Exam Limitations: no limitations General appearance: alert, in no apparent distress, other (This is a well- developed, well-nourished adult male in no acute distress.) ENT exam: Present: mucous membranes moist, other (Bright red blood from the left nare) Respiratory exam: Present: normal lung sounds bilaterally. Absent: respiratory distress, wheezes, rales, rhonchi, stridor Cardiovascular Exam: Present: regular rate, normal rhythm, normal heart sounds. Absent: systolic murmur, diastolic murmur, rubs, gallop, clicks Neurological exam: Present: alert, oriented X3, CN II-XII intact Psychiatric exam: Present: normal affect, normal mood Skin exam: Present: warm, dry, intact, normal color. Absent: rash Course Vital Signs 05/11/21 13:01 Temperature 97.9 F Pulse Rate 100 Respiratory 19 Rate Blood Pressure 159/91 O2 Sat by Pulse 99 Oximetry Medical Decision Making - Medical Decision Making 56-year-old male patient presents to the emergency department today for evaluation of nosebleed from the left nostril. Physical examination did reveal bright red blood per the left nostril. Bleeding was stopped using afrin and pressure. Patient was able with ambulate through the department with no rebleeding. He will be discharged to follow up with ENT if necessary. Instructed to follow-up with his primary care physician for recheck in 1-2 days. Return parameters were discussed in detail. He verbalizes understanding and agrees with this plan. Case discussed with my attending Dr. Lugo. Disposition Clinical Impression: Epistaxis Disposition: HOME SELF-CARE Condition: Good Instructions (If sedation given, give patient instructions): Nosebleed (ED) Additional Instructions: Follow-up with ENT specialist. Use Afrin if bleeding starts again. Return for any new, worsening, or concerning symptoms. Is patient prescribed a controlled substance at d/c from ED?: No Referrals: Nic Tate DO [Primary Care Provider] - 1-2 days Oracio Mueller DO [Doctor of Osteopathic Medicine] - 1-2 days Time of Disposition: 14:14
== END 2021-05-11 14:35 | disposition home or self-care (01) ==
LOC: EC 12:47
DX: R04.0 Epistaxis (principal); K21.9 Gastro-esophageal reflux disease without esophagitis
CPT/HCPCS: 30901; 99283

== ENCOUNTER → 2024-12-04 | Outpatient (CLI) | payer BC ==
--- NOTE | 2024-12-04 12:45 | CA ---
Exercise Stress Test Report Name: Lisandro Rothman Exam Date: 12/04/2024 11:26 Exam Location: [place] Stress Ht (in): 67 Wt (lb): 183 BSA: 1.95 Ordering Phys: Nic Tate DO Referring Phys: LISANDRO Technologist: RAW Age: 59 Gender: M : 1965 Procedure CPT: Indications: I27.0 pulmonary hypertension ICD-10 Codes: Patient History: CP, HTN, FAMILY HX, HIGH CHOL. Medications: ROSUVASTATIN,,,, AMLODIPINE,,, Meds past 24 hrs: Pretest Chest Pain: STRESS TEST Naif Protocol Exercise Duration (min:sec): 10:[address] Depressions (mm): Angina Score: Greenwood Score: Resting HR (bpm): 103 Peak HR (bpm): 144 Resting BP (mmHg): 162 / 89 Peak BP (mmHg): 181 / 64 MPHR: 162 Target HR: 138 % MPHR: 89 METS: 12.1 Total Dose: Peak Dose: Atropine: Double Product: 52381 BP Response: Stress Termination: TARGET HR REACHED/MAX EXERTION Stress Symptoms: NO SYMPTOMS Stress Summary: ECG ANALYSIS Resting ECG: Stress ECG: CONCLUSIONS Reason for stress test: Chest pain Abnormal EKG at baseline with Q waves in the inferior leads and poor R wave progression in the precordial leads Patient exercised on a Naif protocol for 10 minutes Normal heart rate and blood pressure response No clear-cut evidence for ischemia No arrhythmias Dr. Mathew Alonzo MD (Electronically Signed) Final Date: 04 Dec 2024 12:44
== END | disposition home or self-care (01) ==
LOC: RADNMMAIN 10:24
PROVIDERS: ATTEND Family Medicine
DX: I27.0 Primary pulmonary hypertension (principal); R94.31 Abnormal electrocardiogram [ECG] [EKG]
CPT/HCPCS: 93017

== ENCOUNTER → 2025-01-03 | Outpatient (CLI) | payer BC ==
--- NOTE | 2025-01-03 18:57 | CA ---
Transthoracic Echo Report Name: Bebeto Rothman Age: 59 Gender: M : 1965 Exam Date: 01/03/2025 14:13 Exam Location: [place] Echo Ht (in): 67 Wt (lb): 180 Ordering Physician: Nic Tate DO Attending/Referring Phys: Pin Attacher Haile Molina RDCS Procedure CPT: Indications: I27.0 PRIMARY PULMONARY HTN R07.9 CHEST PAIN Cardiac Hx: Technical Quality: Good Contrast 1: Total Dose (mL): Contrast 2: Total Dose (mL): MEASUREMENTS (Male / Female) Normal Values 2D ECHO LV Diastolic Diameter PLAX 4.9 cm 4.2 - 5.9 / 3.9 - 5.3 cm LV Systolic Diameter PLAX 3.2 cm IVS Diastolic Thickness 0.9 cm 0.6 - 1.0 / 0.6 - 0.9 cm LVPW Diastolic Thickness 1.0 cm 0.6 - 1.0 / 0.6 - 0.9 cm LV Relative Wall Thickness 0.4 RV Internal Dim ED PLAX 4.1 cm LVOT Diameter 2.0 cm LA Systolic Diameter LX 2.9 cm 3.0 - 4.0 / 2.7 - 3.8 cm LV Diastolic Volume MOD 4C 91.6 cm??? LV Systolic Volume MOD 4C 34.8 cm??? LV Ejection Fraction MOD 4C 62.1 % LV Cardiac Index MOD 4C 2379.7 cm???/min???m??? LV Diastolic Length 4C 9.2 cm LV Systolic Length 4C 7.4 cm LV Diastolic Volume MOD 2C 66.4 cm??? LV Systolic Volume MOD 2C 32.3 cm??? LV Ejection Fraction MOD 2C 51.4 % LV Cardiac Index MOD 2C 1427.0 cm???/min???m??? LV Diastolic Length 2C 9.1 cm LV Systolic Length 2C 7.0 cm LA Volume 49.7 cm??? 18 - 58 / 22 - 52 cm??? LA Volume Index 25.1 cm???/m??? 16 - 28 cm???/m??? DOPPLER MV Area PHT 2.5 cm??? Mitral E Point Velocity 82.7 cm/s Mitral A Point Velocity 101.6 cm/s Mitral E to A Ratio 0.8 MV Deceleration Time 308.8 ms TR Peak Velocity 237.0 cm/s TR Peak Gradient 22.5 mmHg Right Atrial Pressure 10.0 mmHg Pulmonary Artery Systolic Pressu 32.5 mmHg Right Ventricular Systolic Press 32.5 mmHg FINDINGS Left Ventricle Left ventricular ejection fraction is estimated at 60%. Normal Left ventricular size, wall thickness, systolic function with no obvious regional wall motion abnormalities. Right Ventricle Normal right ventricular size and function. Right ventricular systolic pressure within normal limits. Right Atrium Normal right atrial size. Left Atrium Normal left atrial size. Mitral Valve Structurally normal mitral valve. Aortic Valve Trileaflet aortic valve. No aortic valve stenosis or regurgitation. Tricuspid Valve Structurally normal tricuspid valve. No tricuspid stenosis. Trace tricuspid regurgitation. Pulmonic Valve Structurally normal pulmonic valve. No pulmonic stenosis. Trace pulmonic regurgitation. Pericardium No pericardial effusion. Aorta Aortic annulus normal. CONCLUSIONS Normal LV systolic function Previewed by: Dr. Nathan Jordan MD (Electronically Signed) Final Date: 03 January 2025 18:56
== END | disposition home or self-care (01) ==
LOC: RADECHMAIN 13:46
PROVIDERS: ATTEND Family Medicine
DX: I27.0 Primary pulmonary hypertension (principal); I07.1 Rheumatic tricuspid insufficiency
CPT/HCPCS: 93306